=== PATIENT | female | born 1975 | race Caucasian/White ===

== ENCOUNTER 2021-05-16 09:35 | Observation (INO) ==
[2021-05-16] MEDS ORDERED: Ondansetron 4 MG/2 ML VIAL IVP ONE (09:58)
[2021-05-16] MEDS ORDERED: Ketorolac 30 MG/ML VIAL IVP ONE (09:58)
[2021-05-16] MEDS ORDERED: *HR* Promethazine 25 MG/ML VIAL IM ONE (10:27)
[2021-05-16] MEDS ORDERED: Albuterol 2.5 MG/3 ML NEBULIZER IH ONE (12:44)
[2021-05-16] MEDS ORDERED: Metoclopramide 10 MG/2 ML VIAL IVP ONE (15:57)
[2021-05-16] MEDS ORDERED: 0.9 % Sodium Chloride 1,000 ML IVC ONE (15:58)
[2021-05-16] MEDS ORDERED: Naloxone 0.4 MG/ML INJ IVP PRN (16:52)
[2021-05-16] MEDS ORDERED: 0.9 % Sodium Chloride 1,000 ML IVC SCH (17:15)
[2021-05-16] MEDS ORDERED: *HR* HYDROmorphone (PF) 1 MG/ML SYRINGE IVP ONE (19:49)
[2021-05-16] MEDS ORDERED: traZODone 50 MG TABLET PO PRN (19:53)
[2021-05-16] MEDS: *HR* Heparin 5,000 UNIT/ML VIAL SQ SCH (23:22)
[2021-05-16] MEDS: *HR* HYDROcodone/Acet 5/325 mg TABLET PO PRN (23:22)
[2021-05-16 23:28] VITALS: O2SAT 96
[2021-05-17] MEDS ORDERED: Ketorolac 30 MG/ML VIAL IVP ONE (03:42)
[2021-05-17] MEDS ORDERED: Menthol 1 EACH LOZENGE PO PRN (03:52)
[2021-05-17] MEDS: *HR* Heparin 5,000 UNIT/ML VIAL SQ SCH (04:58)
[2021-05-17 06:21] LABS: Basophils % 0.3 %; Eosinophils # 0.4 K/mcL (0.0-0.6); Eosinophils % 6.7 %; Hematocrit 33.2 % (35.3-44.9); Hemoglobin 10.8 g/dL (11.5-15.4); Immature Granulocytes % 0.2 % (0-4); Lymphocytes # 2.3 K/mcL (0.6-4.6); Lymphocytes % 37.1 %; Mean Corpuscular HGB Conc 32.5 g/dL (31.6-35.5); Mean Corpuscular Volume 89.2 fL (83.0-100.0); Mean Platelet Volume 9.1 fL (9.4-12.4); Monocytes # 0.6 K/mcL (0.0-1.3); Neutrophils # 2.8 K/mcL (1.6-8.9); Platelet Count 302 K/mcL (140-400); Red Blood Count 3.72 M/mcL (3.82-4.97); Segmented Neutrophils % 45.7 %; White Blood Count 6.1 K/mcL (4.3-11.1)
[2021-05-17 06:39] LABS: BUN/Creatinine Ratio 17 (6-26); Blood Urea Nitrogen 14 mg/dL (6-20); Carbon Dioxide 24 mEq/L (23-29); Chloride 103 mEq/L (98-107); Glucose 113 mg/dL (70-105); Osmolality,Calculated 277 (280-300); Potassium 4.2 mEq/L (3.5-5.1); Sodium 133 mEq/L (136-145); eGFR For African Americans > 60 (> 60); eGFR For Non-African Americans > 60 (> 60)
[2021-05-17 08:00] VITALS: BP 112/76; PULSE 100; TEMP 98.4
[2021-05-17] MEDS: *HR* HYDROcodone/Acet 5/325 mg TABLET PO PRN (08:53)
[2021-05-17] MEDS ORDERED: hydroCHLOROthiazide 25 MG TABLET PO SCH (09:00)
[2021-05-17] MEDS ORDERED: ARIPiprazole 10 MG TABLET PO SCH (09:00)
[2021-05-17] MEDS ORDERED: Melatonin 3 MG TABLET PO SCH (21:00)
== END 2021-05-17 11:58 | disposition home or self-care (01) ==
LOC: EMEROOARM 09:35 → 3BNU 09:35
PROVIDERS: ADMIT Internal Medicine; ATTEND Internal Medicine